=== PATIENT | female | born 1945 | race Caucasian/White ===

== ENCOUNTER 2022-07-03 12:48 | Outpatient (REF) | payer OTHER, SELFPAY ==
[2022-07-03 13:53] LABS: MANUAL DIFF FLAG NO
[2022-07-03 14:05] LABS: Basophils Absolute Auto 0.1 X10*3/uL (0.0-0.2); Basophils Percent Auto 0.7 % (0-2); Eosinophils Absolute Auto 0.4 X10*3/uL (0.0-0.4); Eosinophils Percent Auto 4.6 % (0-4); Hematocrit 39.8 % (37.0-47.0); Hemoglobin 12.5 g/dl (12.0-16.0); Imm Gran Abs Auto 0.04 X10*3/uL (0.00-0.03); Imm Gran Pct Auto 0.4 % (0.0-0.4); Lymphocytes Percent Auto 21.8 % (20-40); Mean Corpuscular HGB Conc 31.4 g/dl (31.0-35.0); Mean Corpuscular Hemoglobin 27.8 pg (27.0-33.0); Mean Corpuscular Volume 88.4 fL (80.0-98.0); Monocytes Absolute Auto 0.8 X10*3/uL (0.1-1.2); Monocytes Percent Auto 8.7 % (2-11); Neutrophils Percent Auto 63.8 % (45-73); Platelet Count 418 X10*3/uL (160-400); Red Cell Distribution Width 13.5 % (11.0-16.0); White Blood Count 9.4 X10*3/uL (4.8-10.8)
[2022-07-03 14:09] LABS: Prothrombin Time 11.1 SEC (10.0-13.1)
[2022-07-03 14:27] LABS: Alanine Aminotransferase 21 U/L (0-31); Albumin Level 4.4 g/dL (3.5-5.0); Alkaline Phosphatase 91 U/L (39-117); Anion Gap 12 (12-20); Aspartate Amino Transferase 19 U/L (5-31); Bilirubin Total 0.7 mg/dL (0.0-1.0); Blood Urea Nitrogen 34 mg/dL (9-16); Calcium 10.4 mg/dL (8.4-10.2); Carbon Dioxide 30 mmol/L (22-29); Chloride 106 mmol/L (96-108); Cholesterol 165 mg/dL; Estimated Average Glucose 126 mg/dL; Estimated Glomerular Filt Rate 43; Glucose Random 106 mg/dL (60-115); HDL Cholesterol 52 mg/dL; LDL Cholesterol Calculated 97 mg/dl; Potassium 4.5 mmol/L (3.3-5.1); Sodium 143 mmol/L (135-145); Total Protein 7.6 g/dL (6.5-8.0); Triglycerides 80 mg/dL
[2022-07-03 14:36] LABS: Creatinine Urine 39.13 mg/dL; Microalbumin Urine < 5.0 mg/L
== END 2022-07-03 12:49 | disposition home or self-care (01) ==
LOC: HO.HMGCLDS 12:48
PROVIDERS: PCP Internal Medicine; Visit Provider Internal Medicine
DX: E11.9 Type 2 diabetes mellitus without complications (principal); I10 Essential (primary) hypertension; E78.5 Hyperlipidemia, unspecified
CPT/HCPCS: 36415; 80053; 80061; 82043; 83036; 85025; 85610

== ENCOUNTER 2022-09-25 10:49 | Outpatient (AMB) | payer OTHER, SELFPAY ==
[2022-09-25 11:14] VITALS: BP 118/64; PULSE 71; O2SAT 96; BMI 31.7
--- NOTE | 2022-09-25 11:14 | A.OFFPC_ITS ---
Vital Signs 09/25/22 11:14 Height 5 ft 1 in Weight 168 lb BMI 31.7 BP 118/64 Blood Pressure Location Lt brachial Position Sitting Pulse 71 Pulse Source Pulse Oximeter Pulse Oximetry (%) 96 Oxygen Delivery Method Room Air Intake Visit Reasons: f/u on shoulder surgery Intake Note: Pt is here today for a follow up visit. Allergies aspirin Allergy (Unknown, Verified 09/25/22 11:19) Unknown minocycline Allergy (Unknown, Verified 09/25/22 11:19) Unknown penicillin V Allergy (Unknown, Verified 09/25/22 11:19) Unknown Sulfa (Sulfonamide Antibiotics) Allergy (Unknown, Verified 09/25/22 11:19) Unknown dapagliflozin [From [facility]] Allergy (Verified 09/25/22 11:19) constipation, abdominal pain back pain Compazine Allergy (Unknown, Uncoded 09/25/22 11:19) Unknown Medication List - Last Reconciled 09/25/22 by Wanda Renee MD amlodipine-olmesartan 5-20 mg 1 tab PO DAILY fluticasone furoate-vilanterol 200-25 mcg/dose (Breo Ellipta) 1 inh inhalation DAILY gabapentin 300 mg PO TID hydrochlorothiazide 12.5 mg PO DAILY lansoprazole 30 mg PO DAILY metformin ER 750 mg PO DAILY montelukast 10 mg PO DAILY pravastatin 40 mg PO DAILY propranolol 20 mg PO BID Tobacco use date assessed: 07/03/22 Dental Screening Dental Screen Date: 09/25/22 Did you have a dental visit in the last 12 months?: Yes Did you have a dental problem in the last 6 months where you did not have access to dental care?: No Was dental information given to patient?: Patient has dentist HPI f/u on shoulder surgery HPI Details Patient presents for the follow-up. She had right shoulder surgery at [facility] and had a difficult recovery. Patient is doing better starting to use her right arm and continues to have physical therapy. Hypertension chronic asthma type 2 diabetes are controlled on current medications. [facility] Medical History DM type 2 (diabetes mellitus, type 2) HTN (hypertension) Hyperlipidemia Knee pain, bilateral Knee pain, right Sciatica Tear of meniscus of knee joint Tear of meniscus of left knee Family History Father Lung cancer Mother No problems noted. Social History Housing: House Patient Tobacco Use Status: Never used Tobacco e-Cigarette/Vaping Use: Never Used Current occupational status: employed Cognitive needs: No Hearing needs: No Vision needs: Yes Questionnaire Thrive Questionnaire Date Thrive assessed: 04/01/22 JOHANNY-7 AMB Questionnaire JOHANNY-7 Date JOHANNY - 7 assessed: 04/01/22 Source: Developed by Drs. Osman Marshall, Renea Grover, Hayden Kothari and colleagues, with an educational alexa from [employer]. Review of Systems Const All systems reviewed & are unremarkable except as noted in HPI and below Reports no additional complaints Eyes Reports no additional complaints ENT Reports no additional complaints Card Reports no additional complaints Resp Reports no additional complaints GI Reports no additional complaints Physical exam (Primary Care) Vital Signs: Last Vital Signs Pulse 71 09/25/22 11:14 BP 118/64 09/25/22 11:14 Pulse Ox 96 09/25/22 11:14 Oxygen Delivery Method Room Air 09/25/22 11:14 BMI result Body Mass Index 31.7 Tobacco/Smoking Status: Tobacco use Status Tobacco use date assessed 07/03/22 09/25/22 11:15 Patient Tobacco Use Status Never used Tobacco 09/25/22 11:15 e-Cigarette/Vaping Use Never Used 09/25/22 11:15 Thrive Assessment: Date of Thrive Assessment Date Thrive assessed 04/01/22 09/25/22 11:15 Const General: no acute distress HENMT Head: Yes normal to inspection Eyes General: appearance normal, both eyes and all related structures Neck Neck: Yes supple Resp Effort & Inspection: normal respiratory effort Auscultation: clear to auscultation bilaterally Cardio Rhythm: regular rhythm Heart sounds: S1 normal heart sound present and S2 normal heart sound present GI Inspection: Yes normal to inspection Palpation (GI): Soft to palpation Auscultation: normal bowel sounds Assessment and Plan Assessment & Plan (1) CKD (chronic kidney disease) stage 3, GFR 30-59 ml/min: Code(s): N18.30 - Chronic kidney disease, stage 3 unspecified Plan: Avoid NSAIDs and monitor renal function (2) Hyperlipidemia: Code(s): E78.5 - Hyperlipidemia, unspecified Plan: Continue statin (3) HTN (hypertension): Code(s): I10 - Essential (primary) hypertension Plan: Continue current medications (4) DM type 2 (diabetes mellitus, type 2): Comment: Intolerant to Farxiga, abdominal pain and constipation, could not tolerate >750mg f Metformin Code(s): E11.9 - Type 2 diabetes mellitus without complications Plan: Continue current medications return for fasting blood work and [facility] and follow- up in 2 months Orders: Orders Comprehensive [place]. Panel Fast Today E11.9 - Type 2 diabetes mellitus without complications, E78.5 - Hyperlipidemia, unspecified, I10 - Essential (primary) hypertension, N18.30 - Chronic kidney disease, stage 3 unspecified Hemoglobin A1c Today E11.9 - Type 2 diabetes mellitus without complications, E78.5 - Hyperlipidemia, unspecified, I10 - Essential (primary) hypertension, N18.30 - Chronic kidney disease, stage 3 unspecified Lipid Panel Today E11.9 - Type 2 diabetes mellitus without complications, E78.5 - Hyperlipidemia, unspecified, I10 - Essential (primary) hypertension, N18.30 - Chronic kidney disease, stage 3 unspecified Complete Blood Count Auto Diff Today E11.9 - Type 2 diabetes mellitus without complications, E78.5 - Hyperlipidemia, unspecified, I10 - Essential (primary) hypertension, N18.30 - Chronic kidney disease, stage 3 unspecified Coding Level of Care Code Est Pt Level 4 (27197) Diagnoses CKD (chronic kidney disease) stage 3, GFR 30-59 ml/min N18.30 Hyperlipidemia E78.5 HTN (hypertension) I10 DM type 2 (diabetes mellitus, type 2) E11.9
== END 2022-09-25 12:47 | disposition home or self-care (01) ==
PROVIDERS: PCP Internal Medicine; Visit Provider Internal Medicine
DX: I12.9 Hypertensive chronic kidney disease with stage 1 through stage 4 chronic kidney disease, or unspecified chronic kidney disease (principal); E11.22 Type 2 diabetes mellitus with diabetic chronic kidney disease; N18.30 Chronic kidney disease, stage 3 unspecified; E78.5 Hyperlipidemia, unspecified
CPT/HCPCS: 99214

== ENCOUNTER 2023-01-29 11:58 | Outpatient (AMB) | payer OTHER, SELFPAY ==
--- NOTE | 2023-01-29 12:07 | A.OFFPC_ITS ---
Vital Signs 01/29/23 12:08 Height 5 ft 1 in BP 122/68 Blood Pressure Location Rt brachial Position Sitting Pulse 78 Pulse Source Pulse Oximeter Pulse Oximetry (%) 98 Oxygen Delivery Method Room Air Intake Visit Reasons: Follow up Intake Note: pt is here for f/u Allergies aspirin Allergy (Unknown, Verified 01/29/23 12:09) Unknown minocycline Allergy (Unknown, Verified 01/29/23 12:09) Unknown penicillin V Allergy (Unknown, Verified 01/29/23 12:09) Unknown Sulfa (Sulfonamide Antibiotics) Allergy (Unknown, Verified 01/29/23 12:09) Unknown dapagliflozin [From [facility]] Allergy (Verified 01/29/23 12:09) constipation, abdominal pain back pain Compazine Allergy (Unknown, Uncoded 09/25/22 11:19) Unknown Medication List - Last Reconciled 01/29/23 by Wanda Renee MD amlodipine-olmesartan 5-20 mg 1 tab PO DAILY doxycycline hyclate 100 mg PO BID fluticasone furoate-vilanterol 200-25 mcg/dose (Breo Ellipta) 1 inh inhalation DAILY hydrochlorothiazide 12.5 mg PO DAILY lansoprazole 30 mg PO DAILY montelukast 10 mg PO DAILY pravastatin 40 mg PO DAILY propranolol 20 mg PO BID Tobacco use date assessed: 01/29/23 Fall risk assessment: 1 Fall in past year Last assessed Fall Risk: 01/29/23 Dental Screening Dental Screen Date: 01/29/23 Did you have a dental visit in the last 12 months?: Yes Did you have a dental problem in the last 6 months where you did not have access to dental care?: No Was dental information given to patient?: Patient has dentist HPI Follow up HPI Details Patient presents for the follow-up on hypertension type 2 diabetes hyperlipidemia. Patient stopped taking metformin because of decreased appetite and nausea from doxycycline. Patient lost 10 lb. She has been taking doxycycline for infection after surgery for displaced fracture of right humerus. She follows up with orthopedic and ID in [facility]. She has been in physical therapy, gaining range of motion. Asthma is stable on Breo . [facility] Medical History Tear of meniscus of knee joint Knee pain, right Tear of meniscus of left knee Sciatica Knee pain, bilateral Hyperlipidemia HTN (hypertension) DM type 2 (diabetes mellitus, type 2) Surgical History H/O shoulder surgery Family History Father Lung cancer Mother No problems noted. Social History Housing: House Patient Tobacco Use Status: Never used Tobacco e-Cigarette/Vaping Use: Never Used Current occupational status: employed Cognitive needs: No Hearing needs: No Vision needs: Yes Questionnaire Thrive Questionnaire Date Thrive assessed: 04/01/22 JOHANNY-7 AMB Questionnaire JOHANNY-7 Date JOHANNY - 7 assessed: 04/01/22 Source: Developed by Drs. Osman Marshall, Renea Grover, Hayden Kothari and colleagues, with an educational alexa from [employer]. Review of Systems Const All systems reviewed & are unremarkable except as noted in HPI and below Reports no additional complaints Eyes Reports no additional complaints ENT Reports no additional complaints Card Reports no additional complaints Resp Reports no additional complaints GI Reports no additional complaints Reports no additional complaints Physical exam (Primary Care) Vital Signs: Last Vital Signs Pulse 78 01/29/23 12:08 BP 122/68 01/29/23 12:08 Pulse Ox 98 01/29/23 12:08 Oxygen Delivery Method Room Air 01/29/23 12:08 Tobacco/Smoking Status: Tobacco use Status Tobacco use date assessed 01/29/23 01/29/23 12:13 Patient Tobacco Use Status Never used Tobacco 01/29/23 12:13 e-Cigarette/Vaping Use Never Used 01/29/23 12:13 Thrive Assessment: Date of Thrive Assessment Date Thrive assessed 04/01/22 01/29/23 12:13 Const General: no acute distress HENMT Face and sinus: Yes normal facial exam Neck Neck: Yes no lymphadenopathy and Yes supple Resp Effort & Inspection: normal respiratory effort Auscultation: clear to auscultation bilaterally Cardio Rhythm: regular rhythm Heart sounds: S1 normal heart sound present and S2 normal heart sound present GI Inspection: Yes normal to inspection Palpation (GI): Soft to palpation Extrem General: Yes no clubbing, cyanosis or edema Assessment and Plan Assessment & Plan (1) Vitamin D deficiency: Code(s): E55.9 - Vitamin D deficiency, unspecified Plan: Continue vitamin-D supplement (2) Hyperlipidemia: Code(s): E78.5 - Hyperlipidemia, unspecified Plan: Continue pravastatin (3) HTN (hypertension): Code(s): I10 - Essential (primary) hypertension Plan: Continue amlodipine with olmesartan and patient will stop hydrochlorothiazide because of low blood pressure (4) DM type 2 (diabetes mellitus, type 2): Comment: Intolerant to Farxiga, abdominal pain and constipation, could not tolerate >7 50mg f Metformin Code(s): E11.9 - Type 2 diabetes mellitus without complications Plan: A1c is 6.3, ADA diet increase physical activity discussed with the patient follow-up in 3 months with a fasting labs before including A1c (5) CKD (chronic kidney disease) stage 3, GFR 30-59 ml/min: Code(s): N18.30 - Chronic kidney disease, stage 3 unspecified Plan: Continue amlodipine with olmesartan and monitor renal function Orders: Orders Comprehensive [place]. Panel Fast 3 Months E11.9 - Type 2 diabetes mellitus without complications, E55.9 - Vitamin D deficiency, unspecified, E78.5 - Hyperlipidemia, unspecified, I10 - Essential (primary) hypertension Lipid Panel 3 Months E11.9 - Type 2 diabetes mellitus without complications, E55.9 - Vitamin D deficiency, unspecified, E78.5 - Hyperlipidemia, unspecified, I10 - Essential (primary) hypertension Complete Blood Count Auto Diff 3 Months N18.30 - Chronic kidney disease, stage 3 unspecified Hemoglobin A1c 3 Months E11.9 - Type 2 diabetes mellitus without complications, E55.9 - Vitamin D deficiency, unspecified, E78.5 - Hyperlipidemia, unspecified, I10 - Essential (primary) hypertension Microalbumin, Random (w Creat) 3 Months E11.9 - Type 2 diabetes mellitus without complications, E55.9 - Vitamin D deficiency, unspecified, E78.5 - Hyperlipidemia, unspecified, I10 - Essential (primary) hypertension Vitamin D 25-OH Total 3 Months E11.9 - Type 2 diabetes mellitus without complications, E55.9 - Vitamin D deficiency, unspecified, E78.5 - Hyperlipidemia, unspecified, I10 - Essential (primary) hypertension Coding Level of Care Code Est Pt Level 4 (81268) Diagnoses Vitamin D deficiency E55.9 Hyperlipidemia E78.5 HTN (hypertension) I10 DM type 2 (diabetes mellitus, type 2) E11.9 CKD (chronic kidney disease) stage 3, GFR 30-59 ml/min N18.30
[2023-01-29 12:08] VITALS: BP 122/68; PULSE 78; O2SAT 98
== END 2023-01-29 14:08 | disposition home or self-care (01) ==
PROVIDERS: PCP Internal Medicine; Visit Provider Internal Medicine
DX: I12.9 Hypertensive chronic kidney disease with stage 1 through stage 4 chronic kidney disease, or unspecified chronic kidney disease (principal); N18.30 Chronic kidney disease, stage 3 unspecified; E11.22 Type 2 diabetes mellitus with diabetic chronic kidney disease; E55.9 Vitamin D deficiency, unspecified; E78.5 Hyperlipidemia, unspecified
CPT/HCPCS: 99214

== ENCOUNTER 2023-08-06 10:13 | Outpatient (AMB) | payer OTHER, SELFPAY ==
[2023-08-06 10:18] VITALS: BP 132/68; PULSE 63; O2SAT 96; BMI 32.3
--- NOTE | 2023-08-06 10:18 | A.OFFPC_ITS ---
Vital Signs 08/06/23 10:18 Height 5 ft 1 in Weight 171 lb BMI 32.3 BP 132/68 Blood Pressure Location Rt brachial Position Sitting Pulse 63 Pulse Source Pulse Oximeter Pulse Oximetry (%) 96 Oxygen Delivery Method Room Air Intake Visit Reasons: Follow up Intake Note: Pt is here today for a follow up visit on DM. Allergies aspirin Allergy (Unknown, Verified 08/06/23 10:23) Unknown minocycline Allergy (Unknown, Verified 08/06/23 10:23) Unknown penicillin V Allergy (Unknown, Verified 08/06/23 10:23) Unknown Sulfa (Sulfonamide Antibiotics) Allergy (Unknown, Verified 08/06/23 10:23) Unknown dapagliflozin [From [facility]] Allergy (Verified 08/06/23 10:23) constipation, abdominal pain back pain Compazine Allergy (Unknown, Uncoded 08/06/23 10:23) Unknown Medication List - Last Reconciled 08/06/23 by Wanda Renee MD amlodipine-olmesartan 5-20 mg 1 tab PO DAILY fluticasone furoate-vilanterol 200-25 mcg/dose (Breo Ellipta) 1 inh inhalation DAILY hydrochlorothiazide 12.5 mg PO DAILY lansoprazole 30 mg PO DAILY montelukast 10 mg PO DAILY pravastatin 40 mg PO DAILY propranolol 20 mg PO BID Tobacco use date assessed: 08/06/23 Fall risk assessment: 1 Fall in past year Last assessed Fall Risk: 08/06/23 Dental Screening Dental Screen Date: 08/06/23 Did you have a dental visit in the last 12 months?: Yes Did you have a dental problem in the last 6 months where you did not have access to dental care?: No Was dental information given to patient?: Patient has dentist HPI Follow up HPI Details Pt presents for f/u of HTN,hyperlipid, diet controlled DM. [facility] Medical History Tear of meniscus of knee joint Knee pain, right Tear of meniscus of left knee Sciatica Knee pain, bilateral Hyperlipidemia HTN (hypertension) DM type 2 (diabetes mellitus, type 2) Surgical History H/O shoulder surgery Family History Father Lung cancer Mother No problems noted. Social History Housing: House Patient Tobacco Use Status: Never used Tobacco e-Cigarette/Vaping Use: Never Used service: No Current occupational status: employed Cognitive needs: No Hearing needs: No Vision needs: Yes Questionnaire PHQ-9 Over the last 2 weeks, how often have you been bothered by any of the following problems? 1. Little interest or pleasure in doing things: not at all 2. Feeling down, depressed, or hopeless: not at all 3. Trouble falling or staying asleep, or sleeping too much: not at all 4. Feeling tired or having little energy: not at all 5. Poor appetite or overeating: not at all 6. Feeling bad about yourself - or that you are a failure or have let yourself or your family down: not at all 7. Trouble concentrating on things, such as reading the newspaper or watching television: not at all 8. Moving or speaking so slowly that other people could have noticed. Or the opposite - being so fidgety or restless that you have been moving around a lot more than usual: not at all 9. Thoughts that you would be better off or of hurting yourself in some way: not at all Total score: 0 Depression Screening Interpretation: Negative Depression Screening Done: Yes Source: Developed by Drs. Osman Marshall, Renea Grover, Hadyen Kothari and colleagues, with an educational alexa from [employer]. Thrive Questionnaire Date Thrive assessed: 08/06/23 I am a: Patient What is your living situation today?: I have a steady place to live Within the past 12 months, did the food you bought not last and you didn't have the money to get more?: Never true Within the past 12 months, did you worry whether your food would run out before you got money to buy more?: Never true Do you have trouble paying for medicines?: No Do you have trouble getting transportation to medical appointments?: No Do you have trouble paying your heating and electricity bill?: No Do you have trouble taking care of your child, family member or friend?: No Do you have trouble with day-to-day activities such as bathing, preparing meals, shopping, managing finances, etc.?: No Are you currently unemployed and looking for a job?: No Are you interested in more education?: No Please select the resources that you would like help with: None THRIVE Score: 0 AUDIT C Alcohol Use Questionnaire (AUDIT-C) 1. How often do you have a drink containing alcohol?: Never 3. How often do you have six or more drinks on one occasion?: Never Total Score: 0 JOHANNY-7 AMB Questionnaire JOHANNY-7 Date JOHANNY - 7 assessed: 08/06/23 Feeling nervous, anxious, or on edge: 0 = Not at all Not being able to stop or control worryin = Not at all Worrying too much about different things: 0 = Not at all Trouble relaxin = Not at all Being so restless that it is hard to sit still: 0 = Not at all Becoming easily annoyed or irritable: 0 = Not at all Feeling afraid as if something awful might happen: 0 = Not at all Total JOHANNY-7 score (0-4 normal; 5-9 mild; 10-14 moderate; 15-21 severe): 0 Source: Developed by Drs. Osman Marshall, Renea Grover, Hayden Kothari and colleagues, with an educational alexa from [employer]. Review of Systems Const All systems reviewed & are unremarkable except as noted in HPI and below Card Reports no additional complaints Resp Reports no additional complaints GI Reports no additional complaints Reports no additional complaints Physical exam (Primary Care) Vital Signs: Last Vital Signs Pulse 63 08/06/23 10:18 BP 132/68 08/06/23 10:18 Pulse Ox 96 08/06/23 10:18 Oxygen Delivery Method Room Air 08/06/23 10:18 BMI result Body Mass Index 32.3 Tobacco/Smoking Status: Tobacco use Status Tobacco use date assessed 08/06/23 08/06/23 10:24 Patient Tobacco Use Status Never used Tobacco 08/06/23 10:24 e-Cigarette/Vaping Use Never Used 08/06/23 10:20 PHQ-9: PHQ-9 Score PHQ-9: Total score 0 08/06/23 10:43 Depression Screening Interpretation: Negative Thrive Assessment: Date of Thrive Assessment Date Thrive assessed 06/28/24 06/28/24 10:28 Const General: no acute distress [facility] Ears: hearing grossly normal bilaterally Throat: Yes posterior oropharynx normal Resp Effort & Inspection: normal respiratory effort Auscultation: clear to auscultation bilaterally Cardio Rhythm: regular rhythm Heart sounds: S1 normal heart sound present and S2 normal heart sound present GI Inspection: Yes normal to inspection Palpation (GI): Soft to palpation Percussion: Yes normal to percussion Auscultation: normal bowel sounds Assessment and Plan Assessment & Plan (1) CKD (chronic kidney disease) stage 3, GFR 30-59 ml/min: Code(s): N18.30 - Chronic kidney disease, stage 3 unspecified Plan: avoid nephrotoxins, monitor renal function (2) DM type 2 (diabetes mellitus, type 2): Comment: Intolerant to Farxiga, abdominal pain and constipation, could not tolerate >750mg f Metformin Code(s): E11.9 - Type 2 diabetes mellitus without complications Plan: cont ADA diet, exercise, weight loss , check A1C today and in 6 months (3) HTN (hypertension): Code(s): I10 - Essential (primary) hypertension Plan: cont meds (4) Hyperlipidemia: Code(s): E78.5 - Hyperlipidemia, unspecified Plan: cont statin (5) Hx of colonoscopy: Comment: 05/2023 Dr. Wagner, polyps recheck in 2 yrs Code(s): Z98.890 - Other specified postprocedural states Orders: Orders Comprehensive [employer] [place]. Panel Fast 08/06/23 E11.9 - Type 2 diabetes mellitus without complications, E78.5 - Hyperlipidemia, unspecified, I10 - Essential (primary) hypertension, N18.30 - Chronic kidney disease, stage 3 unspecified, Z98.890 - Other specified postprocedural states Lipid Panel 08/06/23 E11.9 - Type 2 diabetes mellitus without complications, E78.5 - Hyperlipidemia, unspecified, I10 - Essential (primary) hypertension, N18.30 - Chronic kidney disease, stage 3 unspecified, Z98.890 - Other specified postprocedural states Hemoglobin A1c 08/06/23 E11.9 - Type 2 diabetes mellitus without complications, E78.5 - Hyperlipidemia, unspecified, I10 - Essential (primary) hypertension, N18.30 - Chronic kidney disease, stage 3 unspecified, Z98.890 - Other specified postprocedural states Vitamin D 25-OH Total 08/06/23 E11.9 - Type 2 diabetes mellitus without complications, E78.5 - Hyperlipidemia, unspecified, I10 - Essential (primary) hypertension, N18.30 - Chronic kidney disease, stage 3 unspecified, Z98.890 - Other specified postprocedural states XR DEXA axial skeleton 08/06/23 E11.9 - Type 2 diabetes mellitus without complications, E78.5 - Hyperlipidemia, unspecified, I10 - Essential (primary) hypertension, N18.30 - Chronic kidney disease, stage 3 unspecified, Z98.890 - Other specified postprocedural states UA w Microscopic 08/06/23 E11.9 - Type 2 diabetes mellitus without complications, E78.5 - Hyperlipidemia, unspecified, I10 - Essential (primary) hypertension, N18.30 - Chronic kidney disease, stage 3 unspecified, Z98.890 - Other specified postprocedural states Comprehensive [employer] [place]. Panel Fast 6 Months E11.9 - Type 2 diabetes mellitus without complications, E78.5 - Hyperlipidemia, unspecified, I10 - Essential (primary) hypertension Vitamin D 25-OH Total 6 Months E11.9 - Type 2 diabetes mellitus without complications, E78.5 - Hyperlipidemia, unspecified, I10 - Essential (primary) hypertension Complete Blood Count Auto Diff 08/06/23 E11.9 - Type 2 diabetes mellitus without complications, E78.5 - Hyperlipidemia, unspecified, I10 - Essential (primary) hypertension, N18.30 - Chronic kidney disease, stage 3 unspecified, Z98.890 - Other specified postprocedural states Microalbumin, Random (w Creat) 08/06/23 E11.9 - Type 2 diabetes mellitus without complications, E78.5 - Hyperlipidemia, unspecified, I10 - Essential (primary) hypertension, N18.30 - Chronic kidney disease, stage 3 unspecified, Z98.890 - Other specified postprocedural states Hemoglobin A1c 6 Months E11.9 - Type 2 diabetes mellitus without complications, E78.5 - Hyperlipidemia, unspecified, I10 - Essential (primary) hypertension Lipid Panel 6 Months E11.9 - Type 2 diabetes mellitus without complications, E78.5 - Hyperlipidemia, unspecified, I10 - Essential (primary) hypertension Complete Blood Count Auto Diff 6 Months E11.9 - Type 2 diabetes mellitus without complications, E78.5 - Hyperlipidemia, unspecified, I10 - Essential (primary) hypertension Microalbumin, Random (w Creat) 6 Months E11.9 - Type 2 diabetes mellitus without complications, E78.5 - Hyperlipidemia, unspecified, I10 - Essential (primary) hypertension Medications: Changed From propranolol 20 mg PO BID 180 tabs 3RF To propranolol 20 mg PO BID PRN 180 tabs 3RF tremor Discontinued hydrochlorothiazide Discontinued Reason: Doctor's Order 12.5 mg PO DAILY 90 tabs 3RF Coding Level of Care Code Est Pt Level 4 (94159) Diagnoses CKD (chronic kidney disease) stage 3, GFR 30-59 ml/min N18.30 DM type 2 (diabetes mellitus, type 2) E11.9 HTN (hypertension) I10 Hyperlipidemia E78.5 Hx of colonoscopy Z98.890
== END 2023-08-06 12:51 | disposition home or self-care (01) ==
PROVIDERS: PCP Internal Medicine; Visit Provider Internal Medicine
DX: I12.9 Hypertensive chronic kidney disease with stage 1 through stage 4 chronic kidney disease, or unspecified chronic kidney disease (principal); N18.30 Chronic kidney disease, stage 3 unspecified; E11.22 Type 2 diabetes mellitus with diabetic chronic kidney disease; E78.5 Hyperlipidemia, unspecified; Z98.890 Other specified postprocedural states
CPT/HCPCS: 99214

== ENCOUNTER 2023-08-06 11:16 | Outpatient (REF) | payer OTHER, SELFPAY ==
[2023-08-06 13:08] LABS: Appearance Urine Clear; Color Urine Yellow; Glucose Urine UA Negative (Negative); Leukocyte Esterase Urine Negative (Negative); Nitrite Urine Negative (Negative); PH 5.5 (5.0-9.0); Urine Blood Negative (Negative); Urine Ketones Negative (Negative); Urine Protein Negative (Neg-Trace)
[2023-08-06 13:13] LABS: Bacteria Urine None Seen (None Seen); Hyaline Casts Urine 0-2 /LPF (0-2); RBC Urine 0-2 /HPF (0-2); Squamous Epithelial Cell Urine 0-2 /HPF (0-2); WBC Urine 0-5 /HPF (0-5)
[2023-08-06 13:14] LABS: MANUAL DIFF FLAG NO
[2023-08-06 13:18] LABS: Basophils Absolute Auto 0.1 X10*3/uL (0.0-0.2); Basophils Percent Auto 0.7 % (0-2); Eosinophils Absolute Auto 0.2 X10*3/uL (0.0-0.4); Eosinophils Percent Auto 2.6 % (0-4); Hematocrit 38.9 % (37.0-47.0); Imm Gran Abs Auto 0.02 X10*3/uL (0.00-0.03); Imm Gran Pct Auto 0.3 % (0.0-0.4); Lymphocytes Absolute Auto 1.3 X10*3/uL (1.2-4.9); Lymphocytes Percent Auto 17.3 % (20-40); Mean Corpuscular HGB Conc 30.8 g/dl (31.0-35.0); Mean Corpuscular Hemoglobin 27.3 pg (27.0-33.0); Mean Corpuscular Volume 88.6 fL (80.0-98.0); Mean Platelet Volume 12.3 fL (9.4-12.3); Monocytes Absolute Auto 0.4 X10*3/uL (0.1-1.2); Monocytes Percent Auto 4.6 % (2-11); Neutrophils Absolute Auto 5.7 x10*3/uL (2.0-8.3); Neutrophils Percent Auto 74.5 % (45-73); Platelet Count 345 X10*3/uL (160-400); Red Blood Count 4.39 X10*6/uL (4.20-5.50); Red Cell Distribution Width 15.1 % (11.0-16.0); White Blood Count 7.6 X10*3/uL (4.8-10.8)
[2023-08-06 13:30] LABS: Estimated Average Glucose 128 mg/dL; Hemoglobin A1c % 6.1 % (<6.0)
[2023-08-06 13:47] LABS: Alanine Aminotransferase 20 U/L (0-31); Albumin Level 4.4 g/dL (3.5-5.0); Alkaline Phosphatase 99 U/L (39-117); Anion Gap 11 (12-20); Aspartate Amino Transferase 20 U/L (5-31); Bilirubin Total 0.3 mg/dL (0.0-1.0); Blood Urea Nitrogen 32 mg/dL (9-16); Calcium 9.2 mg/dL (8.4-10.2); Carbon Dioxide 26 mmol/L (22-29); Chloride 108 mmol/L (96-108); Cholesterol 167 mg/dL (<200); Estimated Glomerular Filt Rate 43; Glucose Fasting 128 mg/dL (60-99); HDL Cholesterol 67 mg/dL (>40); LDL Cholesterol Calculated 92 mg/dL (<100); Potassium 4.7 mmol/L (3.3-5.1); Sodium 140 mmol/L (135-145); Total Protein 7.5 g/dL (6.5-8.0); Triglycerides 41 mg/dL (<150)
[2023-08-06 14:02] LABS: Vitamin D 25-OH Total 49.2 ng/mL (>30)
[2023-08-06 14:26] LABS: Creatinine Urine 68.88 mg/dL; Microalbum/Creatinine Ratio Ur 7.2 ug/mg cr (<30)
== END 2023-08-06 11:17 | disposition home or self-care (01) ==
LOC: HO.HMGCLDS 11:16
PROVIDERS: PCP Internal Medicine; Visit Provider Internal Medicine
DX: I12.9 Hypertensive chronic kidney disease with stage 1 through stage 4 chronic kidney disease, or unspecified chronic kidney disease (principal); E11.22 Type 2 diabetes mellitus with diabetic chronic kidney disease; N18.30 Chronic kidney disease, stage 3 unspecified; E78.5 Hyperlipidemia, unspecified; Z98.890 Other specified postprocedural states
CPT/HCPCS: 36415; 80053; 80061; 81001; 82043; 82306; 82570; 83036; 85025

== ENCOUNTER 2024-03-10 13:23 | Outpatient (AMB) | payer OTHER, SELFPAY ==
[2024-03-10 13:26] VITALS: BP 132/72; PULSE 68; RESP 16; O2SAT 97; BMI 34.9
--- NOTE | 2024-03-10 13:26 | MHC.PC.OV ---
Vital Signs 03/10/24 13:26 Height 5 ft 1 in Weight 184 lb 8 oz BMI 34.9 BP 132/72 Blood Pressure Location Rt brachial Position Sitting Respiration 16 Pulse 68 Pulse Source Pulse Oximeter Pulse Oximetry (%) 97 Oxygen Delivery Method Room Air Intake Visit Reasons: Annual PE Intake Note: Pt is here today for PE. Allergies aspirin Allergy (Unknown, Verified 03/10/24 13:28) Unknown minocycline Allergy (Unknown, Verified 03/10/24 13:28) Unknown penicillin V Allergy (Unknown, Verified 03/10/24 13:28) Unknown Sulfa (Sulfonamide Antibiotics) Allergy (Unknown, Verified 03/10/24 13:28) Unknown dapagliflozin [From [facility]] Allergy (Verified 03/10/24 13:28) constipation, abdominal pain back pain Compazine Allergy (Unknown, Uncoded 08/06/23 10:23) Unknown Medication List - Last Reconciled 03/10/24 by Wanda Renee MD amlodipine-olmesartan 5-20 mg 1 tab PO DAILY fluticasone furoate-vilanterol 200-25 mcg/dose (Breo Ellipta) 1 inh inhalation DAILY gabapentin 1,200 mg PO BID lansoprazole 30 mg PO DAILY montelukast 10 mg PO DAILY pravastatin 40 mg PO DAILY propranolol 20 mg PO BID PRN Tobacco use date assessed: 03/10/24 Fall risk assessment: No Falls in past year Last assessed Fall Risk: 03/10/24 Dental Screening Dental Screen Date: 03/10/24 Did you have a dental visit in the last 12 months?: Yes Did you have a dental problem in the last 6 months where you did not have access to dental care?: No Was dental information given to patient?: Patient has dentist HPI Annual PE HPI Details Pt presents for PE. Pt will have C5-6, and C 6-7 spine surgery in [facility] in 2 weeks for spinal stenosis and radiculopathy affecting left upper extremity PFSH Medical History Tear of meniscus of knee joint Knee pain, right Tear of meniscus of left knee Sciatica Knee pain, bilateral Hyperlipidemia HTN (hypertension) DM type 2 (diabetes mellitus, type 2) Surgical History H/O shoulder surgery Family History Father Lung cancer Mother No problems noted. Social History Housing: House Patient Tobacco Use Status: Never used Tobacco e-Cigarette/Vaping Use: Never Used service: No Current occupational status: employed Cognitive needs: No Hearing needs: No Vision needs: Yes Questionnaire PHQ-9 Over the last 2 weeks, how often have you been bothered by any of the following problems? 1. Little interest or pleasure in doing things: not at all 2. Feeling down, depressed, or hopeless: not at all 3. Trouble falling or staying asleep, or sleeping too much: nearly every day 4. Feeling tired or having little energy: more than half the days 5. Poor appetite or overeating: not at all 6. Feeling bad about yourself - or that you are a failure or have let yourself or your family down: not at all 7. Trouble concentrating on things, such as reading the newspaper or watching television: not at all 8. Moving or speaking so slowly that other people could have noticed. Or the opposite - being so fidgety or restless that you have been moving around a lot more than usual: not at all 9. Thoughts that you would be better off or of hurting yourself in some way: not at all Total score: 5 Depression Screening Interpretation: Negative Depression Screening Done: Yes 58702 - PHQ-9 Billing: Yes Source: Developed by Drs. Osman Marshall, Renea Grover, Hayden Kothari and colleagues, with an educational alexa from [employer]. Thrive Questionnaire Date Thrive assessed: 03/10/24 I am a: Patient What is your living situation today?: I have a steady place to live Within the past 12 months, did the food you bought not last and you didn't have the money to get more?: Never true Within the past 12 months, did you worry whether your food would run out before you got money to buy more?: Never true Do you have trouble paying for medicines?: No Do you have trouble getting transportation to medical appointments?: No Do you have trouble paying your heating and electricity bill?: No Do you have trouble taking care of your child, family member or friend?: No Do you have trouble with day-to-day activities such as bathing, preparing meals, shopping, managing finances, etc.?: No Are you currently unemployed and looking for a job?: No Are you interested in more education?: No Please select the resources that you would like help with: None Currently or been in a relationship where the following occur: No concerns reported THRIVE Score: 0 AUDIT C Alcohol Use Questionnaire (AUDIT-C) 1. How often do you have a drink containing alcohol?: Monthly or less 2. How many drinks containing alcohol do you have on a typical day when you are drinking?: 1 or 2 3. How often do you have six or more drinks on one occasion?: Never Total Score: 1 Score Reviewed/Action Taken: Yes JOHANNY-7 AMB Questionnaire JOHANNY-7 Date JOHANNY - 7 assessed: 03/10/24 Feeling nervous, anxious, or on edge: 0 = Not at all Not being able to stop or control worryin = Not at all Worrying too much about different things: 0 = Not at all Trouble relaxin = Not at all Being so restless that it is hard to sit still: 0 = Not at all Becoming easily annoyed or irritable: 0 = Not at all Feeling afraid as if something awful might happen: 0 = Not at all Total JOHANNY-7 score (0-4 normal; 5-9 mild; 10-14 moderate; 15-21 severe): 0 Source: Developed by Drs. Osman Marshall, Renea Grover, Hayden Kothari and colleagues, with an educational alexa from [employer]. JOHANNY-7 Assessment Billing JOHANNY-7 Assessment Tool: JOHANNY-7 Assessment 16898 Review of Systems Const All systems reviewed & are unremarkable except as noted in HPI and below Eyes Reports no additional complaints Card Reports no additional complaints Resp Reports no additional complaints GI Reports no additional complaints Reports no additional complaints Physical exam (Primary Care) Vital Signs: Last Vital Signs Pulse 68 03/10/24 13:26 Resp 16 03/10/24 13:26 BP 132/72 03/10/24 13:26 Pulse Ox 97 03/10/24 13:26 Oxygen Delivery Method Room Air 03/10/24 13:26 BMI result Body Mass Index 34.9 Tobacco/Smoking Status: Tobacco use Status Tobacco use date assessed 03/10/24 03/10/24 13:27 Patient Tobacco Use Status Never used Tobacco 03/10/24 13:27 e-Cigarette/Vaping Use Never Used 03/10/24 13:27 PHQ-9: PHQ-9 Score PHQ-9: Total score 5 03/10/24 13:30 Depression Screening Interpretation: Negative Thrive Assessment: Date of Thrive Assessment Date Thrive assessed 03/10/24 03/10/24 13:27 Currently or been in a relationship where the following occur: No concerns reported Const General: no acute distress HENMT Head: Yes normal to inspection Mouth: Normal oral and palatal mucosa present Eyes General: appearance normal, both eyes and all related structures Neck Neck: Yes supple Resp Effort & Inspection: normal respiratory effort Auscultation: diminished lung sounds Cardio Rhythm: regular rhythm Heart sounds: S1 normal heart sound present and S2 normal heart sound present GI Inspection: Yes normal to inspection Palpation (GI): Soft to palpation Percussion: Yes normal to percussion Auscultation: normal bowel sounds Skin Other: Left inguinal area there is erythema and shallow ulcer with small amount of purulent discharge Coding Level of Care Code Est Pt Prev Care >65y(14597) Diagnoses Thyroid nodule E04.1 Spinal stenosis, cervical region M48.02 DM type 2 (diabetes mellitus, type 2) E11.9 HTN (hypertension) I10 CKD (chronic kidney disease) stage 3, GFR 30-59 ml/min N18.30 Annual physical exam Z00.00 Sebaceous cyst of labia N90.7 Additional Codes JOHANNY-7 Assessment Billing - JOHANNY-7 Assessment Tool: JOHANNY-7 Assessment 90817 ([id number]) PHQ-9 - 59816 - PHQ-9 Billing: Yes ([id number]) Assessment & Plan Assessment & Plan (1) Thyroid nodule: Comment: Found on the C spine MRI Code(s): E04.1 - Nontoxic single thyroid nodule Category: Medical Plan: Obtain thyroid ultrasound to evaluate (2) Spinal stenosis, cervical region: Comment: Patient will have surgery in [place] Code(s): M48.02 - Spinal stenosis, cervical region Category: Medical Plan: Follow-up with neurosurgeon (3) DM type 2 (diabetes mellitus, type 2): Comment: Intolerant to Farxiga, abdominal pain and constipation, could not tolerate >750mg f Metformin Code(s): E11.9 - Type 2 diabetes mellitus without complications Category: Medical Plan: ADA diet regular physical activity discussed with the patient. She will have a fasting blood work done for preop (4) HTN (hypertension): Code(s): I10 - Essential (primary) hypertension Category: Medical Plan: Continue current medications (5) CKD (chronic kidney disease) stage 3, GFR 30-59 ml/min: Code(s): N18.30 - Chronic kidney disease, stage 3 unspecified Category: Medical Plan: Avoid nephrotoxins monitor renal function (6) Annual physical exam: Code(s): Z00.00 - Encounter for general adult medical examination without abnormal findings Category: Medical Plan: Well-balanced diet regular physical activity discussed with the patient. (7) Sebaceous cyst of labia: Code(s): N90.7 - Vulvar cyst Category: Medical Plan: Doxycycline 100 mg twice a day for 10 days is prescribed and skin care discussed with the patient Orders: Orders US thyroid Today E04.1 - Nontoxic single thyroid nodule Medications: New doxycycline monohydrate 100 mg PO BID 20 caps 0RF Changed From gabapentin 300 mg PO BID 60 caps 2RF To gabapentin 1,200 mg PO BID
--- OUTSIDE RECORDS SUMMARY | 2024-03-10 13:37 | XMS_ITS | Clinical Summary ---
Author Organization [facility] Address [address] [place] [address] Care Team Providers Care Ct Scan Technologist Name Role Phone Wanda Renee MD Primary Care Provider [phone] Allergies Active Allergy Reactions Criticality Noted Date Comments Acetaminophen Other (See Comments) 12/10/2014 Aspirin 02/22/2015 Hydrocodone Other (See Comments) 12/10/2014 Penicillins 06/11/2017 Since a child. Prochlorperazine 02/22/2015 Sulfa Antibiotics Hives 12/10/2014 Medications Medication Sig Dispensed Refills Start Date End Date Status albuterol 108 (90 Base) MCG/ACT inhaler Inhale 2 puffs into the lungs. 0 06/11/2017 Active amLODIPine-valsartan (EXFORGE) 5-160 MG per tablet Take 1 tablet by mouth daily. 0 Active amLODIPine-olmesartan (YOBANY) tablet 10-40 mg Take 1 tablet by mouth daily. 0 04/18/2021 Active enoxaparin (LOVENOX) 60 MG/0.6ML SOLN Inject under the skin. 0 Active Breo Ellipta 200-25 MCG/INH AEPB 0 05/30/2021 Active hydroCHLOROthiazide (HYDRODIURIL) tablet 25 mg Take 25 mg by mouth daily. 0 05/23/2021 Active lansoprazole (PREVACID) 15 MG capsule Take 30 mg by mouth. 0 Active loratadine (CLARITIN) 5 MG chewable tablet Chew 5 mg by mouth daily as needed. 0 Active metFORMIN (GLUCOPHAGE-XR) 750 MG 24 hr tablet Take 1,500 mg by mouth daily. 0 03/23/2021 Active methylPREDNISolone (MEDROL) 4 MG tablet Take 4 mg by mouth daily. 0 04/25/2021 Active montelukast (SINGULAIR) 10 MG tablet Take 10 mg by mouth daily. 0 05/23/2021 Active pravastatin (PRAVACHOL) tablet 40 mg Take 40 mg by mouth daily. 0 05/23/2021 Active simvastatin (ZOCOR) tablet 40 mg Take 40 mg by mouth. 0 Active tobramycin-dexamethaso ne (TOBRADEX) ophthalmic solution APPLY 1 DROP TO LEFT EYE 4 TIMES A DAY FOR 5 DAYS 0 03/21/2021 Active Hospital, Clinic, or Other Facility Administered Medication Ordered Dose Route Frequency Start Date End Date Status methylPREDNISolone acetate (DEPO-Medrol) injection 40 mgIndications:Primary osteoarthritis of right knee 40 mg IX Once 06/18/2021 Active lidocaine HCl (XYLOCAINE) 1 % injection soln 4 mLIndications:Primary osteoarthritis of right knee 4 mL OTHER Once 06/18/2021 Active Active Problems No known active problems Family History Medical History Relation Name Comments Clotting disorder Brother Hypertension Father Cancer Mother Rheumatologic disease Sister Relation Name Status Comments Brother Father Mother Sister Social History Tobacco Use Types Packs/Day Years Used Date Smoking Tobacco: Never Smokeless Tobacco: Never Alcohol Use Standard Drinks/Week Comments Not Currently 0 (1 standard drink = 0.6 oz pur e alcohol) Sex and Gender Information Value Date Recorded Sex Assigned at Female 06/12/2021 11:27 AM EDT Gender Identity Female 06/12/2021 11:27 AM EDT Sexual Orientation Not on file Job Start Date Occupation Industry Not on file Not on file Not on file Last Filed Vital Signs Vital Sign Reading Time Taken Comments Blood Pressure - - Pulse - - Temperature - - Respiratory Rate - - Oxygen Saturation - - Inhaled Oxygen Concentration - - Weight 79.4 kg (175 lb) 08/01/2021 10:19 AM EDT Height 152.4 cm (5') 08/01/2021 10:19 AM EDT Body Mass Index 34.18 08/01/2021 10:19 AM EDT Plan of Treatment Health Maintenance Due Date Last Done Comments Hepatitis C Screening 1945 COVID-19 Vaccine (#1) 02/21/1946 Depression Screening 1959 BMI Counseling 08/20/1965 Preventative Health Evaluation 08/20/1965 DTap / Tdap / Td (1 - Tdap) 08/20/1966 Shingrix-Zoster Vaccine (1 of 2) 08/20/1997 Fall Risk Assessment 08/20/2012 Osteoporosis Screening (DEXA Scan) 08/20/2012 Pneumococcal Vaccine (1 of 1 - PCV) 08/20/2012 RSV Adult > 60+ Yrs or Pregn ant (1 - 1-dose 75+ series) 08/20/2022 Influenza Vaccine (#1) 2023 Hepatitis B Vaccines Aged Out No long er eligible based on patient's age to complete this topic RSV Ped < 20 months Aged Out No longe r eligible based on patient's age to complete this topic Care Teams Ct Scan Technologist Relationship Specialty Start Date End Date Wanda Renee MD [address] [place] [id number] PCP - General Sulfur Burner 06/12/21
--- OUTSIDE RECORDS SUMMARY | 2024-03-10 13:37 | XMS_ITS | Clinical Summary ---
Author Organization [facility] Address [address] [place] [address] Phone Care Team Providers Care Joint Machine Operator Name Role Phone Wanda Renee MD Primary Care Provider [phone] Allergies Active Allergy Reactions Criticality Noted Date Comments Prochlorperazine Rash Low 12/28/2023 Penicillins Unknown Low 12/28/2023 States childhood Medications Medication Sig Dispensed Refills Start Date End Date Status montelukast (SINGULAIR) 10 mg tablet Take 1 tablet (10 mg total) by mouth 1 (one) time each day. Active amLODIPine-valsartan (EXFORGE) 5-160 mg per tablet Take 1 tablet by mouth 1 (one) time each day. Active pravastatin (PRAVACHOL) 40 mg tablet Take 1 tablet (40 mg total) by mouth at bedtime. Active lansoprazole (PREVACID) [address] capsule Take 1 capsule (15 mg total) by mouth 1 (one) time each day before breakfast. Do not crush or chew. Active propranoloL (INDERAL) 20 mg tablet Take 1 tablet (20 mg total) by mouth 3 (three) times a day. Active cholecalciferol (VITAMIN D-3) 25 mcg (1,000 unit) tablet Take 1 tablet (1,000 Units total) by mouth 1 (one) time each day. Active fluticasone/vilanterol (BREO ELLIPTA INHL) Inhale by mouth. Active gabapentin (NEURONTIN) 300 mg capsule Take 1 capsule (300 mg total) by mouth 2 (two) times a day. Active turmeric 400 mg capsule Take by mouth. Active acetaminophen (TYLENOL) 500 mg tabletIndications:arth ritic pain Take by mouth every 6 (six) hours if needed for mild pain. Active ibuprofen (ADVIL,MOTRIN) 200 mg tablet Take 1 tablet (200 mg total) by mouth every 6 (six) hours if needed. Active Encounters Date Type Department Care Team Description 12/28/2023 8:20 AM EST Anesthesia Event [facility] [address] [place] [address] Og Sykes DO 12/28/2023 6:59 AM EST - 12/28/2023 11:59 PM EST Hospital Encounter [facility] [address] [place] [address] Pain Discharge Disposition: Home or Self Care 12/28/2023 6:35 AM EST - 12/28/2023 11:59 PM EST Hospital Encounter [facility] [address] [place] [address] Beka Duenas DO Radiculopathy, cervical region Discharge Disposition: Home or Self Care from Last 3 Months Surgical History Surgery Date Site/Laterality Comments SHOULDER SURGERY Right PROCEDURE: HISTORICAL SHOULDER SURGERY; COMMENT: July, Dr Bradford [place] CARPAL TUNNEL RELEASE 2010 Right PROCEDURE: HISTORICAL CARPAL TUNNEL REL KNEE SURGERY Left PROCEDURE: HISTORICAL KNEE SURGERY; COMMENT: Dr. Jolly meniscus repair SECTION PROCEDURE: ME DELIVERY ONLY; COMMENT: x3 TONSILLECTOMY PROCEDURE: HISTORICAL TONSILLECTOMY Medical History Medical History Date Comments GERD (gastroesophageal reflux disease) 8 DX:GERD (gastroesophageal reflux disease) Factor 5 Leiden mutation, he terozygous ([facility]/HCC) 07/04/2017 DX:Factor 5 Leiden mutation, heterozygous (HCC) Hyperlipidemia 07/04/2017 DX:Hyperlipidemi a Hypertension 07/04/2017 DX:Hypertension Borderline diabetes DX:Borderlin e diabetes; COMMENT: last A1C july 2023 6.1, off meds CKD (chronic kidney disease) stage 2, GFR 60-89 ml/min DX:CKD (chronic kidney disea se) stage 2, GFR 60-89 ml/min Benign essential tremor DX:Benross n essential tremor; COMMENT: propranolol prn Mild intermittent asthma, uncomplicated DX:Mild intermittent asthma, uncomplicated Family History Medical History Relation Name Comments Clotting disorder Brother 1 Asthma Brother 2 Hypertension Father cad Cancer Mother Lung cancer Mother Rheumatologic disease Sister Relation Name Status Comments Brother 1 Brother 2 Father Mother Sister Social History Tobacco Use Types Packs/Day Years Used Date Smoking Tobacco: Never Smokeless Tobacco: Never Alcohol Use Standard Drinks/Week Comments No 0 (1 standard drink = 0.6 oz pur e alcohol) Interpersonal Safety Answer Date Record ed Physical Abuse 12/28/2023 Verbal Abuse 12/28/2023 Sex and Gender Information Value Date Recorded Sex Assigned at Female 12/27/2023 4:45 PM EST Gender Identity Female 12/27/2023 4:45 PM EST Sexual Orientation Not on file Job Start Date Occupation Industry Not on file Not on file Not on file Obstetrics History Last Filed Vital Signs Vital Sign Reading Time Taken Comments Blood Pressure 152/73 12/28/2023 9:04 AM EST Pulse 87 12/28/2023 9:04 AM EST Temperature 36.9 ??C (98.4 ??F) 12/28/2023 9:04 AM ES T Respiratory Rate 16 12/28/2023 6:52 AM EST Oxygen Saturation 99% 12/28/2023 9:04 AM EST Inhaled Oxygen Concentration - - Weight 77.1 kg (170 lb) 12/28/2023 7:05 AM EST Height 154.9 cm (5' 1 ) 12/28/2023 7:05 AM EST Body Mass Index 32.12 12/28/2023 7:05 AM EST Plan of Treatment Health Maintenance Due Date Last Done Comments Pneumococcal Vaccine: 65+ Years (1 of 2 - PCV) [birth year]20/1951 Diabetes: Annual Foot Exam 08/20/1957 Diabetes: Annual Retina Eye Exam 08/20/1957 Cholesterol Screening (Lipid Panel) 03/11/2019 Depression Screening 03/11/2019 Falls Risk Assessment 03/11/2019 Hepatitis C Screening 03/11/2019 Social Influencers of Health Screening 03/11/2019 Zoster Vaccines (2 of 2) 12/13/2019 10/18/2019, 09/08 DTaP,Tdap,and Td Vaccines (2 - Td or Tdap) 01/26/2021 01/26/2011 Diabetes: Annual GFR (Glomerular Filtration Rate) 07/10/2023 07/09/2022 Diabetes: Annual Urine Albumin-Creatinine Ratio (uACR) 12/28/2023 Diabetes: Blood Sugar Control Test (HGBA1C) 12/28/2023 Hypertension/CHF/CAD Annual BMP Blood Test 12/28/2023 07/09/2022 Osteoporosis Screening (Bone Density Screening) 10/13/2033 10/14/2023, 07/25/2018 RSV Immunization Patients 60+ Years Old Completed 02/04/2023 Breast Cancer Screening Discontinued 10/13/19 24, 10/08/2022, 10/30/2020, Additional history exists COVID-19 Vaccine Completed 10/25/2023, 08/2022, 11/04/2021, Additional history exists Influenza Vaccine Completed 12/09/2023, , 12/14/2021, Additional history exists HIB Vaccines Aged Out No longer eligi ble based on patient's age to complete this topic HPV Vaccines Aged Out No longer eligi ble based on patient's age to complete this topic Hepatitis A Vaccines Aged Out No long er eligible based on patient's age to complete this topic Hepatitis B Vaccines Aged Out No long er eligible based on patient's age to complete this topic IPV Vaccines Aged Out No longer eligi ble based on patient's age to complete this topic MMR Vaccines Aged Out No longer eligi ble based on patient's age to complete this topic Meningococcal ACWY Vaccine Aged Out N o longer eligible based on patient's age to complete this topic RSV Immunization Patients Under 20 months Aged Out No longer eligible based on patient's age to complete this topic Varicella Vaccines Aged Out No longer eligible based on patient's age to complete this topic Medical Devices Implanted Type Area Product Safety Lead Device Identifier Shelf Expiration Date Model / Serial / Lot Arthroscopy Implants Sports Med Arthroscopy Implants Sports Med Right: Shoulder Implants Implants N/A: Uterus Procedures Procedure Name Priority Date/Time Associated Diagnosis Comments [facility] DEXA AXIAL SKELETON Routine 10/14/2023 8:44 AM EDT Encounter for screening for osteoporosis [facility] SCREENING DIGITAL Routine 10/13/2023 4:49 PM EDT Encounter for screening mammogram for malignant neoplasm of breast from Last 3 Months or Most Recently Relevant to Health Maintenance Results * [facility] DEXA AXIAL SKELETON (10/14/2023 8:44 AM EDT) Anatomical Region Laterality Modality Mammography 10/13/2023 1:50 PM EDT Narrative 10/14/2023 8:44 AM EDT [facility] Diagnostic Imaging Department [address] [place] [id number] Patient: ??CHEL FRENCH ?/Age/Sex: 1945 - 78 - F Unit#: ??[id number] ? Location/Status: ??SPDIMAM/REG CLI ? Mnemonic/Ordering Site: ??MAMDEXAAX/SPMAM Ordering Physician: ??WANDA RENEE MD [facility] Dexa Axial Skeleton - 10/13/23 - [id number] Report Status:Signed HISTORY: ??The patient is a 78-year-old postmenopausal female with clinical concern for metabolic bone disease. FINDINGS: ??Dual energy x-ray absorptiometry of the lumbar spine and femurs is performed. The mean bone mineral density at L1-L4 is 0.967 gm/cm2 which is 82% of that of young normals and 93% of that of age matched controls. This yields a T-score of -1.8 and a Z-score of -0.6 which is diagnostic of osteopenia. The mean bone mineral density of the femurs bilaterally is 0.785 gm/cm2 which is 78% of that of young normals and 94% of that of age matched controls. ??This yields a T-score of -1.8 and a Z-score of -0.4 which is diagnostic of osteopenia. However, the T-score of the right femoral neck is -3.2 and that of the left femoral neck is -3.3 which is diagnostic of osteoporosis. IMPRESSION: 1. Osteoporosis. ??There has been a decrease of 1.7% in bone mineral density in the lumbar spine since the prior examination of 07/25/2018. ??There has been a decrease of 8.7% in bone mineral density in the right femur and a decrease of 8.2% in bone mineral density in the left femur. 2. FRAX analysis yields a 10-year probability of major osteoporotic fracture of 31.6% and a 10-year probability of hip fracture of 12.4%. Code 86556 Dictating Physician: ??ANDREW TEE MD Electronically Signed by: ??ANDREW TEE MD Dic Date/Time: ??10/14/2342 Sign date/Time: ??10/14/23 0844 Procedure Note Andrew Tee MD - 11/24/2023 [facility] Diagnostic Imaging Department [address] [place] [id number] Patient: KENTONCHEL./Age/Sex: 1945 - 78 - F Unit#: [id number] Location/Status: SPDIMAM/REG CLI Mnemonic[facility]ing [facility] Ordering Physician: WANDA RENEE MD [facility] Dexa Axial Skeleton - 10/13/23 - [id number] Report Status:Signed HISTORY: The patient is a 78-year-old postmenopausal female withclinical concern for metabolic bone disease. FINDINGS: Dual energy x-ray absorptiometry of the lumbar spine and femursis performed. The mean bone mineral density at L1-L4 is 0.967 gm/cm2 which is82% of that of young normals and 93% of that of age matched controls. Thisyields a T-score of -1.8 and a Z-score of -0.6 which is diagnostic of osteopenia. The mean bone mineral density of the femurs bilaterally is 0.785 gm/zn9lczap is 78% of that of young normals and 94% of that of age matched controls.This yields a T-score of -1.8 and a Z-score of -0.4 which is diagnostic of osteopenia. However, the T-score of the right femoral neck is -3.2 andthat of the left femoral neck is -3.3 which is diagnostic of osteoporosis. IMPRESSION: 1. Osteoporosis. There has been a decrease of 1.7% in bone mineraldensity in the lumbar spine since the prior examination of 07/25/2018. There has sixto decrease of 8.7% in bone mineral density in the right femur and a decreaseof 8.2% in bone mineral density in the left femur. 2. FRAX analysis yields a 10-year probability of major osteoporoticfracture of 31.6% and a 10-year probability of hip fracture of 12.4%. Code 38412 Dictating Physician: ANDREW TEE MD Electronically Signed by: ANDREW TEE MD Dic Date/Time: 10/14/2342 Sign date/Time: 10/14/2344 Wanda Renee MD IMG BI PROCEDURES * [facility] SCREENING DIGITAL (10/13/2023 4:49 PM EDT) Anatomical Region Laterality Modality Mammography 10/13/2023 12:5 8 PM EDT Narrative 10/13/2023 4:49 PM EDT [facility] Diagnostic Imaging Department [address] [place] [address] Patient: ??CHEL FRENCH ?/Age/Sex: 1945 - 78 - F Unit#: ??[id number] ? Location/Status: ??SPDIMAM/REG CLI ? Mnemonic/Ordering Site: ??DIGSC/SPMAM Ordering Physician: ??WANDA RENEE MD [facility] Screening Digital - 10/13/23 - 1328 Report Status:Signed EXAM: [facility] Screening Digital EXAM DATE AND TIME: 10/13/2023 1:28 PM HISTORY: ??Screening. Left breast biopsy in 1995, pathology benign. COMPARISON: ??10/07/22, 10/30/20, 10/26/19 TECHNIQUE: Bilateral digital breast tomosynthesis was performed in the CC and MLO projections. Computer aided detection with Exosect 3D 3.1 was employed. TISSUE DENSITY: b. There are scattered areas of fibroglandular density. FINDINGS: No suspicious masses, grouped microcalcifications, or areas of architectural distortion are seen. Benign rim and secretory calcifications are again seen. The skin and vascularity are unremarkable. IMPRESSION: Stable mammographic appearance of the breasts. ??No evidence of malignancy is seen. A negative mammogram in the presence of a clinically suspicious palpable abnormality does not preclude the possibility of malignancy or alter the indications for biopsy. BI-RADS: ??Category 2: Benign RECOMMENDATION(S): 1: Routine screening mammogram BILATERAL in 1 year. Dictating Physician: ??JACQUELINE CASE MD Electronically Signed by: ??JACQUELINE CASE MD Dic Date/Time: ??10/13/231648 Sign date/Time: ??10/13/231648 Procedure Note Jacqueline Case MD - 11/24/2023 [facility] Diagnostic Imaging Department [address] [place] [address] Patient: CHEL FRENCH /Age/Sex: 1945 - 78 - F Unit#: [id number] Location/Status: [facility] CLI Mnemonic/Ordering Site: [facility] Ordering Physician: WANDA RENEE MD [facility] Screening Digital - 10/13/23 - 1328 Report Status:Signed EXAM: [facility] Screening Digital EXAM DATE AND TIME: 10/13/2023 1:28 PM HISTORY: Screening. Left breast biopsy in 1995, pathology benign. COMPARISON: 10/07/22, 10/30/20, 10/26/19 TECHNIQUE: Bilateral digital breast tomosynthesis was performed in the CCand MLO projections. Computer aided detection with Exosect 3D 3.1was employed. TISSUE DENSITY: b. There are scattered areas of fibroglandular density. FINDINGS: No suspicious masses, grouped microcalcifications, or areas ofarchitectural distortion are seen. Benign rim and secretory calcifications are againseen. The skin and vascularity are unremarkable. IMPRESSION: Stable mammographic appearance of the breasts. No evidence of malignancyis seen. A negative mammogram in the presence of a clinically suspicious palpable abnormality does not preclude the possibility of malignancy or alter the indications for biopsy. BI-RADS: Category 2: Benign RECOMMENDATION(S): 1: Routine screening mammogram BILATERAL in 1 year. Dictating Physician: JACQUELINE CASE MD Electronically Signed by: JACQUELINE CASE MD Dic Date/Time: 10/13/23 164 Sign date/Time: 10/13/23 1649 Wanda Renee MD IMG BI PROCEDURES from Last 3 Months or Most Recently Relevant to Health Maintenance Care Teams Joint Machine Operator Relationship Specialty Start Date End Date Wanda Renee MD [address] [facility] [place] [address] PCP - General Internal Medicine 12/28/23
--- OUTSIDE RECORDS SUMMARY | 2024-03-10 13:37 | XMS_ITS | Clinical Summary ---
Author Organization [facility] Facility Address [address] [address] Care Team Providers Care Medical Collector Name Role Phone Wanda Renee MD Primary Care Provider [phone] Allergies Active Allergy Reactions Criticality Noted Date Comments Adhesive Tape 02/25/2022 Other reaction(s): skin tear Aspirin Other (see comments) 12/10/2014 Other reaction(s): Throat swelling; burning in abdomen Dapagliflozin 02/24/2022 Hydrocodone Other (see comments) 12/10/2014 Minocycline 02/24/2022 Penicillins Hives 12/10/2014 Since a child. Prochlorperazine 02/22/2015 Other reaction(s): vomiting, hives Sulfa Antibiotics Hives 12/10/2014 Medications amLODIPine-olmes lara (YOBANY) 5-20 MG per tablet Take 1 tablet by mouth 1 (one) time each day 04/18/2021 Active Fluticasone Furoate-Vilanter ol 200-25 MCG/ACT aerosol powder Inhale 1 puff 1 (one) time each day 09/30/2021 Active lansoprazole (PREVACID) [address] capsule Take 30 mg by mouth 1 (one) time each day Active metFORMIN XR (GLUCOPHAGE-XR) 750 MG 24 hr tablet Take 750 mg by mouth 1 (one) time each day 03/23/2021 Active montelukast (SINGULAIR) 10 MG tablet Take 10 mg by mouth 1 (one) time each day 05/23/2021 Active pravastatin (PRAVACHOL) 40 MG tablet Take 40 mg by mouth 1 (one) time each day 05/23/2021 Active propranolol (INDERAL) 10 MG tablet Take 20 mg by mouth if needed 09/30/2021 Active acetaminophen (TYLENOL) 325 MG tablet Take 325 mg by mouth if needed for mild pain Active Active Problems Problem Noted Date Diagnosed Date Stage 3b chronic kidney disease 02/26/2022 Diabetes mellitus, not otherwise specified 02/26 Hypertension 12/10/2014 Overview (02/25/2022): HTN - Hypertension Resolved Problems Problem Noted Date Diagnosed Date Resolved Date Peritonsillar abscess 02/22/20152022 Celiac disease 12/10/2014 02/25/2022 Overview (02/25/2022): Celiac disease Diverticulitis of intestine 12/10/2014 02/25/2022 Overview (02/25/2022): Diverticulitis Factor V Leiden mutation 12/10/2014 Overview (02/25/2022): Factor V Leiden mutation Gastroesophageal reflux disease 12/10/2014 02/25/2022 Overview (02/25/2022): Gastroesophageal reflux disease Hypercholesterolemia 12/10/201402/25/ 023 Overview (02/25/2022): Hypercholesterolemia Pelvic mass 12/10/2014 02/25/2022 Overview (02/25/2022): Pelvic mass Social History Tobacco Use Types Packs/Day Years Used Date Smoking Tobacco: Never Smokeless Tobacco: Never Tobacco Cessation:Counseling Given: Not Answered Comments Unknown Sex and Gender Information Value Date Recorded Sex Assigned at Not on file Legal Sex Female 10:04 AM EDT Gender Identity Not on file Sexual Orientation Not on file Last Filed Vital Signs Vital Sign Reading Time Taken Comments Blood Pressure 138/76 02/26/2022 9:47 AM EST Pulse 68 02/26/2022 9:47 AM EST Temperature - - Respiratory Rate - - Oxygen Saturation 98% 02/26/2022 9:47 AM EST Inhaled Oxygen Concentration - - Weight 76.2 kg (168 lb) 02/26/2022 9:47 AM EST Height 154.9 cm (5' 1 ) 02/26/2022 9:47 AM EST Body Mass Index 31.74 02/26/2022 9:47 AM EST Plan of Treatment Health Maintenance Due Date Last Done Comments Pneumococcal Vaccine: 65+ Ye ars (1 of 2 - PCV) 08/20/1951 Diabetes: Hemoglobin A1C 02/26/2022 09/29/2021 Diabetes: Ophthalmology Exam 02/26/2022 Diabetes: Pedal Pulse Checked 02/26/2022 Diabetes: Sensory Foot Exam 02/26/2022 Diabetes: Visual Foot Exam 02/26/2022 Influenza Vaccine (#1) 2023 Hepatitis B Vaccine Aged Out No longe r eligible based on patient's age to complete this topic Procedures Procedure Name Priority Date/Time Associated Diagnosis Comments EXT RESULT ENTRY Routine 09/29/2021 from Last 3 Months or Most Recently Relevant to Health Maintenance Results * (ABNORMAL) EXT RESULT ENTRY (09/29/2021) WBC 9.4 3.3 - 10.0 10*3/ML Red Blood Cell Count 4.4 Hemoglobin 12.2 12.0 - 16.0 Hematocrit 38.9 36.0 - 46.0 Platelets 339 150 - 399 10*3/UL MCV 87.6 82.0 - 108.0 Sodium 139 137 - 147 Potassium 4.0 3.4 - 5.5 Chloride 104.0 99.0 - 108.0 Carbon Dioxide 30 mmol/L Anion Gap 5 <=30 MMOL/L Glucose 113 60 - 200 BUN 27(A) 4 - 21 mg/dL Creatinine 1.29(A) 0.50 - 1.10 mg/dL Total Protein 7.2 6.4 - 8.2 G/DL Albumin 4.0 3.5 - 5.0 g/dL Calcium 9.7 8.7 - 10.7 mg/dL eGFR Non-Afr Libyan 40 Total Bilirubin 0.4 MG/DL ALT (SGPT) 31 U/L AST (SGOT) 14 U/L Alkaline Phosphatase 75 U/L Hemoglobin A1C 6.4(A) 4.0 - 6.0 Triglycerides 58 Cholesterol, Total 151 HDL 55 mg/dL LDL-Calculated 85 09/29/2021 Historical Provider LAB BLOOD ORDERABLES Elsy l Result from Last 3 Months or Most Recently Relevant to Health Maintenance Insurance [employer] Care Teams Medical Collector Relationship Specialty Start Date End Date Wanda Renee MD [facility] [place] [address] PCP - General Internal Medicine 02/26/22
== END 2024-03-10 14:49 | disposition home or self-care (01) ==
PROVIDERS: PCP Internal Medicine; Visit Provider Internal Medicine
DX: Z00.00 Encounter for general adult medical examination without abnormal findings (principal); I12.9 Hypertensive chronic kidney disease with stage 1 through stage 4 chronic kidney disease, or unspecified chronic kidney disease; E11.22 Type 2 diabetes mellitus with diabetic chronic kidney disease; N18.30 Chronic kidney disease, stage 3 unspecified; E04.1 Nontoxic single thyroid nodule; M48.02 Spinal stenosis, cervical region; N90.7 Vulvar cyst

== ENCOUNTER → 2024-03-10 13:23 | Outpatient (BNVA) | payer OTHER, SELFPAY | PROVIDERS: PCP Internal Medicine; Visit Provider Internal Medicine | DX: Z00.00 Encounter for general adult medical examination without abnormal findings (principal); E04.1 Nontoxic single thyroid nodule; M48.02 Spinal stenosis, cervical region; E11.22 Type 2 diabetes mellitus with diabetic chronic kidney disease; I12.9 Hypertensive chronic kidney disease with stage 1 through stage 4 chronic kidney disease, or unspecified chronic kidney disease; N18.30 Chronic kidney disease, stage 3 unspecified; N90.7 Vulvar cyst | CPT/HCPCS: 96127 ==